=== PATIENT | male | born 1955 | race Caucasian/White ===

== ENCOUNTER 2017-03-11 08:50 | Emergency (ER) | payer BC ==
[~2017-03-11] VITALS: Ht 172.7 cm; Wt 111.9 kg
[~2017-03-11 08:50] MED LIST: Coumadin,Jantoven PO; Feosol PO; KEFLEX500 MG PO; Percocet 5/325,Endoc PO; Senokot S,Pericolace PO; THERAGRAN1 TABLET PO; Tylenol Regular Stre PO
[2017-03-11] MEDS ORDERED: ULTRAM50 MG PO (12:07)
[2017-03-11 12:48] VITALS: BP 124/92
== END 2017-03-11 12:48 | disposition home or self-care (01) ==
LOC: RME 08:50 → EME 08:50 → RME 12:48
DX: M54.31 Sciatica, right side (principal); E11.9 Type 2 diabetes mellitus without complications; Z79.01 Long term (current) use of anticoagulants; F17.200 Nicotine dependence, unspecified, uncomplicated
CPT/HCPCS: 72100; 99281; 99284